=== PATIENT | male | born 1935 | race Asian ===

== ENCOUNTER 2020-12-25 07:11 | Day surgery (SDC) | payer MEDICAID, SELFPAY ==
[~2020-12-25] VITALS: Ht 162.6 cm; Wt 63.0 kg
[2020-12-25] MEDS ORDERED: fentaNYL CITRATE/PF 100 MCG/2 ML AMP ONE (07:27)
[2020-12-25] MEDS ORDERED: SIMETHICONE 40 MG/0.6 ML ML ONE (07:27)
[2020-12-25] MEDS: MIDAZOLAM HCL 5 MG/5 ML VIAL ONE ×2 (08:26→08:34)
[2020-12-25 09:30] VITALS: BP_SYST 129
--- NOTE | 2020-12-25 22:45 | NUR ---
CALLED [employer] [employer] HE GAVE ME PERMISSION TO DISCHARGE PATIENT HE WENT HOME @ [address] [facility]
== END 2020-12-25 10:10 | disposition home or self-care (01) ==
LOC: SDS 07:11 → SMU 07:11 → SDS 10:10
PROVIDERS: ATTEND Internal Medicine
DX: R19.5 Other fecal abnormalities (principal); D12.2 Benign neoplasm of ascending colon; D12.3 Benign neoplasm of transverse colon; D12.5 Benign neoplasm of sigmoid colon; K57.30 Diverticulosis of large intestine without perforation or abscess without bleeding; K64.8 Other hemorrhoids; I10 Essential (primary) hypertension; I25.10 Atherosclerotic heart disease of native coronary artery without angina pectoris; E78.00 Pure hypercholesterolemia, unspecified; A04.8 Other specified bacterial intestinal infections; Z20.828 Contact with and (suspected) exposure to other viral communicable diseases; Z79.899 Other long term (current) drug therapy
CPT/HCPCS: 45385; 88305; 99152; 99153; G0378; J2250; J3010; J7030; U0003; 45384